=== PATIENT | male | born 1950 | race Caucasian/White ===

== ENCOUNTER → 2024-10-28 10:18 | Outpatient (REF) | payer OTHER, SELFPAY | LOC: HWRCS 10:18 | PROVIDERS: ATTENDING PHYSICIAN Internal Medicine; FAMILY PHYSICIAN Nurse Practitioner Primary Care | DX: I48.0 Paroxysmal atrial fibrillation (principal); I42.8 Other cardiomyopathies; Z98.890 Other specified postprocedural states; I36.1 Nonrheumatic tricuspid (valve) insufficiency; I35.1 Nonrheumatic aortic (valve) insufficiency | CPT/HCPCS: 93306 ==

== ENCOUNTER → 2025-01-18 06:39 | Outpatient (REF) | payer OTHER, SELFPAY | LOC: RAD 06:39 | PROVIDERS: ATTENDING PHYSICIAN Nurse Practitioner Family; FAMILY PHYSICIAN Internal Medicine Geriatric Medicine | DX: R10.31 Right lower quadrant pain (principal) | CPT/HCPCS: 74177; Q9967 ==

== ENCOUNTER 2025-05-05 10:28 | Day surgery (SDC) | payer OTHER, SELFPAY | END 2025-05-05 12:02 | disposition home or self-care (01) | LOC: CATH 10:28 | PROVIDERS: ATTENDING PHYSICIAN Student in an Organized Health Care Education/Training Program; FAMILY PHYSICIAN Internal Medicine Geriatric Medicine; OTHER PHYSICIAN Internal Medicine | DX: I48.0 Paroxysmal atrial fibrillation (principal); I49.5 Sick sinus syndrome; Z95.0 Presence of cardiac pacemaker; I10 Essential (primary) hypertension; Z79.01 Long term (current) use of anticoagulants | CPT/HCPCS: 92960; 93005 ==

== ENCOUNTER 2025-07-26 08:05 | Day surgery (SDC) | payer OTHER, SELFPAY ==
[2025-07-21 10:29] VITALS: BMI 28.4
[2025-07-21 10:46] LABS: Hematocrit 48.9 % (39.0-52.0); Hemoglobin 16.6 g/dL (13.0-18.0); Mean Corp Hgb Conc. 33.9 g/dL (33.0-37.0); Mean Corpuscular Volume 87.8 fL (80.0-94.0); Nucleated Red Blood Cells % 0 % (-); Platelet Count 214 10^3/uL (130-400); Red Cell Dist. Width 13.0 % (11.5-14.5)
[2025-07-21 11:01] LABS: ALT (SGPT) 14 U/L (0-50); AST (SGOT) 29 U/L (17-59); Albumin 4.8 g/dl (3.5-5.0); Alkaline Phosphatase 58 U/L (38-126); Blood Urea Nitrogen 22 mg/dl (9-20); Calcium 9.8 mg/dl (8.4-10.2); Carbon Dioxide 26 mmol/L (22-30); Chloride 108 mmol/L (98-107); Estimated Creatinine Clearance 44 ml/min; Glucose 90 mg/dl (70-99); Potassium 4.3 mmol/L (3.5-5.1); Sodium 141 mmol/L (135-145); Total Protein 7.6 g/dl (6.3-8.2); eGFR 57.29
[2025-07-26] VITALS (13 sets, daily range): BP systolic 98–144; BP diastolic 58–122; BMI 27.7
[2025-07-26 12:28] LABS: ACT-LR - POC 374 Seconds (116-155)
[2025-07-26 12:54] LABS: ACT-LR - POC > 397 Seconds (116-155)
--- NOTE | 2025-07-26 14:52 | ITS.CL.ABL ---
[employer] Work[employer] - Ablation
Ablation
Procedure Report:
AFIB / A flutter ablation:
Mr. Braden is a very pleasant 74 yr old gentleman with medical history significant for symptomatic persistent atrial fibrillation s/p AF ablation on 2022 with PVI, PWI and CTI flutter using radiofrequency and Carto mapping with hx of SSS s/p dual
chamber PPM ([employer] � 2015 by Neto Ray) who had developed atypical atrial flutter s/p DCCV on 05/05/25 who has recurred with atypical atrial flutter and is here in the EP lab for atrial fibrillation / flutter ablation
Date of Procedure:
07/26/2025
Indications:
Symptomatic atrial flutter and atrial tachycardia
Pre-Operative Diagnosis:
Symptomatic atrial flutter and atrial tachycardia
Post-Operative Diagnosis:
Symptomatic atrial flutter and atrial tachycardia
Procedure Performed:
Atypical atrial flutter ablation � sherri mitral
Atypical atrial flutter ablation � sherri left atrial appendage
Atypical atrial flutter ablation � Biatrial
Focal atrial tachycardia � right atrium � Clarissa Terminalis
Atypical atrial flutter ablation � lateral right atrial wall
Intra Cardiac ECHOcardiography
Left atrial facing and recording
3D mapping
�
Performing Physician:
Leonid Izquierdo MD
Assistants:
EP staff
Anesthesia:
See anesthesia records
Detailed Description of the Procedure:
Written informed consent was obtained from the patient after a full explanation of the risks and benefits of the procedure including the risks of sedation and anesthesia.
The patient was brought to the electrophysiology laboratory in stable condition in fasting state. Continuous electrocardiographic and hemodynamic monitoring was initiated.
The initial rhythm was atrial flutter.
The procedure site was meticulously prepared with surgical scrub and allowed to dry with no pooling. Sterile draping was applied to cover the procedure site. The image intensifier was draped with sterile bag and positioned over the patient. After
infusion of local anesthetic, vascular access was obtained under ultrasound guidance and sheaths were placed over guide wire as detailed below.
The images of the ultrasound of the femoral vessels were stored in patient chart.
Sheath and Catheter Placement:
Sheaths:
��������� Agilis sheath in right femoral vein upgraded from 8Fr in right femoral vein
��������� 10Fr in right femoral vein
��������� 7Fr in right femoral vein
Catheters:
��������� The Affera Sphere 9 catheter -bidirectional D/F� - at locations of HRA, RV, LA and LV.
��������� ICE catheter -AccuNav -� at locations of RA, SVC, and RV.
��������� Bard Decapolar in RA and CS
Heparin was initiated after the access was obtained.
Intracardiac ECHO:
An 8-Kinyarwanda AcuNav intracardiac ECHO (ICE) probe was advanced through the 9-Kinyarwanda sheath in the left femoral vein into the right atrium under fluoroscopic and ICE ultrasound image guidance and a baseline ECHO study was performed. The left atrial
size was severely dilated. There was trace tricuspid regurgitation. The aortic valve was grossly normal. There was normal left ventricular size and function. There is a trace pericardial effusion. The ZOILA was severely dilated and has normal
velocities. The pulmonary had good flow identified.
During the procedure, ICE was used for monitoring of complications, guidance of trans-septal puncture, monitor the catheter position and tracking ablation lesions. No change in the pericardial space noted throughout the procedure.
Electroanatomic mapping of the right atrium:
A J-tipped guidewire was advanced through the 8-Kinyarwanda sheath in the right femoral vein into the superior vena cava under fluoroscopic and ICE guidance. The 8-Kinyarwanda sheath was exchanged for an Agilis sheath which was advanced into the superior vena
cava.
Using the Sphere 9 Affera catheter advanced through Agilis sheath into the right atrium, an electroanatomic map (EAM) of the right atrium was created using the [employer] mapping system with [employer] software mapping system. The pacemaker leads were
avoided and the remaining atrium was mapped in detail.
There was normal HV conduction noted at baseline at 65 ms.
The flutter was concentric and the RA mapped first. The flutter was mapped in the RA and was noted to have passively activated and the rhythm was coming from the LA.
Decision was made to access the LA.
Trans-septal Puncture:
Heparin was initiated and infused to maintain appropriate ACT. A J-tipped guidewire was advanced through into the superior vena cava under fluoroscopic and ICE guidance. The Agilis sheath with BRK needle was advanced into the superior vena cava over
the guidewire. The apparatus was withdrawn until it was in contact with the fossa ovalis. The position was adjusted based on fluoroscopy and ultrasound images from ICE. Under fluoroscopic, hemodynamic and ICE ultrasound guidance, left atrium was
cannulated by advancing the needle. Once atrial septum was cannulated, the needle was pulled back and the guide wire was advanced through the needle into the left atrium. The guide wire was advanced into the left superior pulmonary vein. Both the
sheath and the dilator was advanced into the left atrium. The dilator with the needle was withdrawn. Blood was aspirated from the Agilis sheath and arterial blood confirmed. The sheath was flushed. Saline injection noted into the left atrium on ICE.
The waveform of the LA pressure was recorded. The mapping catheter was advanced in the Agilis sheath into the left pulmonary vein.
3D Electroanatomic Mapping:
Using the Sphere 9 Affera catheter advanced through Agilis sheath into the left atrium, an electroanatomic map (EAM) of the left atrium was created using [employer] mapping system with [employer] software. The map was used for localization of catheter
position and tacking of ablation lesions. The EAM of the left atrium showed a total of 4 PVs with two left and the two right sided pulmonary veins with all electrically isolated from the body the LA.
The posterior wall was also silent with prior posterior wall isolation.
The flutter was mapped in the LA and it was perimitral flutter � CL of 320ms. The flutter switched to a faster tachycardia 210 msec. It was also involving the LA and was revolving around the ZOILA. The ZOILA was severely dilated and was able to sustain
the tachycardia around itself.
Following the EAM, preparation were made for ablation.
Ablation:
Ablation # 1: Atypical atrial flutter / Mitral line formation:
There was significant scar on the anterior wall with minimal abnormality noted on the lateral mitral isthmus. Decision was made to create anterior mitral line. There was significant fractionated signals noted on the anterior wall at the base of left
atrial appendage.
Series of ablations were placed on the anterior wall connecting the mitral isthmus to the right superior pulmonary vein antral lesions anteriorly.
Ablation #2: Atypical atrial flutter ablation � sherri left atrial appendage
The second flutter was revolving around the left atrial appendage. The left atrial appendage was severely dilated in a severely dilated left atrium.
Series of ablations were placed on the anterior wall connecting the mitral isthmus to the left superior pulmonary vein antral lesions anteriorly.
The tachycardia terminated into another flutter which was 340 ms.
Ablation #3: Atypical atrial flutter ablation � Bi-atrial flutter
The new flutter was again mapped in the left atrium that showed block at the anterior left atrial wall with left atrial appendage passively activating at the last. The tachycardia was coming into the left atrium from Zen bundle and traversing
the left atrium and going towards right atrium via septal CS activation.
With a new fracture identified, the Zen bundle was ablated and additional ablation lesions were created at the atrial septum.
Further ablations were created at the fractionated signals on the left atrial septum.
Ablation #4: Focal atrial tachycardia � right atrium � Clarissa Terminalis
This terminated into another tachycardia which was 370 ms to 410 ms and fluctuating to 300 ms. The wobble in the tachycardia makes it more likely a focal arrhythmia. It was mapped and was coming from the right atrium. The catheter was moved from the
left atrium to the right atrium and was mapped. Due to the bubble, the exact location was difficult to assess but was noted to be coming from mid clarissa terminalis
The area of the origin of focal A. tach was ablated with pulsed field using Affera. The tachycardia terminated into paced atrial rhythm
Ablation #5: Atypical atrial flutter ablation � lateral right atrial wall
Patient had another tachycardia which was resolving around the right atrial lateral wall. Unlikely focal A. tach from clarissa, this appeared to be if reentrant tachycardia involving around the right atrial appendage.
A series of ablation were placed at the lateral wall of the right atrial appendage and connected it to the IVC and clarissa terminalis.
Series of ablations were placed to suppress any abnormal activity.
EP study:
Sinus Node Function: The sinus node functions are within acceptable normal range.
Atrioventricular Nelida Function: �Post ablation HV interval was unchanged at 60 msec
Procedure End
ICE study was done again that showed no epicardial accumulation. No complications noted.
Following the completion of the EP study, catheters were removed. Protamine 40 mg was given at the end of the procedure and ACT was checked repeatedly. The sheaths were removed and hemostasis achieved with Fig of 8 and manual compression after
acceptable ACT is achieved.
Left atrial Pressure:
Mean LA pressure was 14mmHg
Estimated Blood loss:
<10 cc
Specimens Removed:
None.
Implants / Devices:
None
Urine output:
None
Packs / Drains/ Tubes:
None
Instrument / Sponge Count Correct:
Yes
Complications of the Procedure:
None
Condition of Patient at Time of Transfer:
Hemodynamically stable with no neurological or vascular compromise.
Summary:
��������� Successful supraventricular tachycardia ablation with ablation of various atypical atrial flutter ablations including sherri mitral flutter, sherri left atrial appendage flutter, Biatrial flutter, right atrial lateral wall flutter, focal
atrial tachycardia from clarissa terminalis
Figures from the Procedure:
Figure 1: The electroanatomic mapping (EAM) of the left atrium with bipolar voltage (purple indicates normal electrical activity with red as no myocardial muscle electric activity indicating a line of block or scar.
[2025-07-26 15:24] LABS: ACT-LR - POC > 397 Seconds (116-155)
--- NOTE | 2025-07-26 17:04 | W.PN.UPDATE ---
Update Note
Progress Note Update
Pt seen post PFA, flutter and AT ablation. Right groin site without ht/bleeding, non tender. OOB ambulating. Post EKG APaced w/PVC, no acute changes. Resume eliquis tonight at usual time. Followup with Dr. Valladares as scheduled. Home today if groin
site/tele remain stable.
== END 2025-07-26 18:00 | disposition home or self-care (01) ==
LOC: CATH 08:05
PROVIDERS: ATTENDING PHYSICIAN Internal Medicine Cardiovascular Disease; FAMILY PHYSICIAN Internal Medicine Geriatric Medicine; OTHER PHYSICIAN Internal Medicine
DX: I48.0 Paroxysmal atrial fibrillation (principal); I48.4 Atypical atrial flutter
CPT/HCPCS: 93662; C1733; 36415; 80053; 85025; 85347; 86850; 86900; 86901; 93005; 93462; 93653; 93655; C1730; C1759; C1766; C1769; C1892; C1894